=== PATIENT | female | born 1975 | race Caucasian/White ===

== ENCOUNTER 2019-01-18 08:43 | Day surgery (SDC) | payer MEDICAID ==
[2019-01-18] VITALS (11 sets, daily range): BP systolic 101–139; BP diastolic 60–85; PULSE 69–82; RESP 15–21; Ht 162.6 cm; Wt 68.5 kg
[~2019-01-18] VITALS: Ht 162.6 cm; Wt 68.5 kg
[~2019-01-18 08:43] MED LIST: ABCC1C PO; GLYB1.252 PO; PREN1TAB17 PO; ZOF8 PO
[2019-01-18] MEDS ORDERED: POLYMYXIN/BACITRACIN 1L IRRIG IRR ONE (10:30)
[2019-01-18] MEDS ORDERED: CEFAZOLIN 1 GM/50 ML (PMX) 50 ML IVPB ONE ×2 (10:30→12:58)
[2019-01-18] MEDS: SOD CHLORIDE 0.9% 1,000 ML IV SCH ×2 (11:18→13:00)
[2019-01-18] MEDS ORDERED: HEPARIN 1000 UNITS/ML 10 ML INJ ONE (12:35)
[2019-01-18] MEDS ORDERED: LIDOCAINE 1%/EPI (1:100,000) (MDV) 20 ML ONE ×2 (12:35→13:32)
[2019-01-18] MEDS ORDERED: MIDAZOLAM 1 MG/ML 2 ML INJ ONE (12:58)
[2019-01-18] MEDS ORDERED: FENTAnyl 50 MCG/ML VIAL ONE (12:59)
[2019-01-18] MEDS ORDERED: TRANEXAMIC ACID 1 GM/100 ML ONE (15:54)
[2019-01-18] MEDS ORDERED: HYDROCODONE/APAP (5/325) TAB PO ONE ×2 (16:00)
== END 2019-01-18 17:00 | disposition home or self-care (01) ==
LOC: RAD 08:43 → SDS 08:43 → RAD 17:00
PROVIDERS: ATTEND Internal Medicine Hematology & Oncology
DX: C50.912 Malignant neoplasm of unspecified site of left female breast (principal)
CPT/HCPCS: 36561; 76942; C1788; J0690; J1644; J2250; J3010

== ENCOUNTER 2019-03-22 09:42 | Emergency (ER) | payer MEDICAID ==
[~2019-03-22] VITALS: Ht 160 cm; Wt 66.1 kg
[2019-03-22 09:46] VITALS: Ht 160 cm; Wt 66.1 kg
[2019-03-22] MEDS ORDERED: morphine 4 MG/ML VIAL IV STA (11:40)
[2019-03-22] MEDS ORDERED: ONDANSETRON 4 MG INJ IV STA ×2 (11:40→14:09)
[2019-03-22] MEDS ORDERED: METO10TA3 PO (12:00)
[2019-03-22] MEDS ORDERED: ACET-141 PO (12:00)
[2019-03-22] MEDS ORDERED: IOHEXOL 300MG/ML 150 ML BTL ONE (13:12)
[2019-03-22] MEDS ORDERED: SOD CHLORIDE 0.9% 100 ML ONE (13:12)
[2019-03-22] MEDS ORDERED: SOD CHLORIDE 0.9% 1,000 ML IV STA (14:09)
[2019-03-22] MEDS ORDERED: KETOROLAC 30 MG INJ IV STA (14:09)
[2019-03-22] MEDS ORDERED: HYDROmorphONE 1 MG/ML SYG IV STA (14:09)
[2019-03-22] MEDS ORDERED: DOCU-144 PO (14:32)
[2019-03-22] MEDS ORDERED: HYDR-4011 PO (14:32)
[2019-03-22] MEDS ORDERED: HEPARIN (100 UNITS/ML) 5 ML SYG CATHETER ONE (15:30)
[2019-03-22 15:52] VITALS: BP 119/58; PULSE 68; RESP 20
--- NOTE | 2019-03-26 13:31 | ERD ---
ER Documentation Chief Complaint Chief Complaint generalized body pain x 3 days , on chemo for breast ca HPI This is a very pleasant 44-year-old female with a past medical history of left- sided breast carcinoma on chemotherapy. The patient presents to the emergency department complaining of flank pain for the past 3 days. She states the pain is on the left-hand side. The pain has been intermittent. Today it progressively worsened and started to move to the left lower quadrant. She denies any hematuria. She has no frequency urgency or dysuria. She said no fevers or shaking no chills. She had generalized myalgias she states the pain is causing exhaustion. She did not take analgesic medication prior to arrival. Has no shortness of breath. ROS All systems reviewed and are negative except as per history of present illness. Medications Home Meds Active Scripts Docusate Sodium* (Colace*) 100 Mg Capsule, 100 MG PO Q24H PRN for CONSTIPATION, #30 CAP Prov:ILDEFONSO CHAPMAN MD 03/22/19 Hydrocodone/Acetaminophen ([place] 5-325 Tablet) 1 Each Tablet, 1 EACH PO Q6, #20 TAB Prov:ILDEFONSO CHAPMAN MD 03/22/19 Reported Medications Acetaminophen* (Acetaminophen*) 500 MG Extra Strength Tablet, 500 MG PO BID PRN for PAIN AND OR ELEVATED TEMP, TAB 03/22/19 Metoclopramide Hcl* (Metoclopramide Hcl*) 10 Mg Tablet, 10 MG PO BID PRN for NAUSEA AND OR VOMITING, TAB 03/22/19 Allergies Allergies: Coded Allergies: Sulfa (Sulfonamide Antibiotics) (Verified Allergy, Unknown, 03/22/19) PMhx/Soc History of Surgery: Yes (C SECTION, RT OOPHERECTOMY) Anesthesia Reaction: No Hx Neurological Disorder: No Hx Respiratory Disorders: No Hx Cardiac Disorders: No Hx Psychiatric Problems: No Hx Miscellaneous Medical Probl: No Hx Alcohol Use: No Hx Substance Use: No Hx Tobacco Use: No Smoking Status: Never smoker Physical Exam Vitals Vital Signs Date Temp Pulse Resp B/P (MAP) Pulse Ox O2 O2 Flow FiO2 Time Delivery Rate 03/22/19 68 20 119/58 100 Room Air 15:52 (78) 03/22/19 69 19 125/77 100 Room Air 14:54 (93) 03/22/19 68 20 119/54 98 Room Air 12:30 (75) 03/22/19 97.8 98 18 157/98 99 09:46 (117) Physical Exam Constitutional:Well-developed. Well-nourished. HEENT:Normocephalic. Atraumatic.Pupils were equal round reactive to light. Moist mucous membranes.No tonsillar exudates. Neck: No nuchal rigidity. No lymphadenopathy. No posterior cervical spine tenderness or step-offs. Respiratory: Not using accessory muscles of respiration.Lungs were clear to auscultation bilaterally. No rhonchi. No rales. No wheezing. Cardiovascular: Regular rate regular rhythm.No murmurs. No rubs were appreciated.S1, S2 normal. Distal pulses are palpable 2+ bilaterally. GI: Left CVA tenderness. Tenderness in the left lower quadrant. No abdominal masses or bruits. Bowel sounds were normal. No peritoneal signs. Muscle skeletal: Full range of motion of both the upper and lower extremities bilaterally.Normal muscle tone.No assymetrical calf tenderness or swelling. Skin: No petechia, no purpura. No lesions on the palms or the soles of the feet. No maculopapular rash. NEURO: Patient was alert, awake, orientated x3.No facial droop. Gait observed and normal with no ataxia.Speech had regular rate and rhythm. No focal neurological deficits. Result Diagram: 03/22/19 1150 03/22/19 1150 Results 24 hrs Laboratory Tests Test 03/22/19 11:45 03/22/19 11:50 Urine Color COLORLESS Urine Clarity CLEAR Urine pH 8.0 Urine Specific [place] 1.002 Urine Ketones NEGATIVE mg/dL Urine Nitrite NEGATIVE mg/dL Urine Bilirubin NEGATIVE mg/dL Urine Urobilinogen NEGATIVE mg/dL Urine Leukocyte Esterase NEGATIVE Jean [place]/ul Urine Hemoglobin NEGATIVE mg/dL Urine Glucose NEGATIVE mg/dL Urine Total Protein NEGATIVE mg/dl White Blood Count 2.9 10^3/ul Red Blood Count 3.51 10^6/ul Hemoglobin 11.0 g/dl Hematocrit 32.8 % Mean Corpuscular Volume 93.4 fl Mean Corpuscular Hemoglobin 31.3 pg Mean Corpuscular Hemoglobin Concent 33.5 g/dl Red Cell Distribution Width 13.1 % Platelet Count 189 10^3/UL Mean Platelet Volume 9.5 fl Immature Granulocytes % 0.300 % Neutrophils % % Segmented Neutrophils % (Manual) 15 % Band Neutrophils % (Manual) 9 % Lymphocytes % % Lymphocytes % (Manual) 63 % Reactive Lymphocytes % (Manual) 11 % Monocytes % % Monocytes % (Manual) 2 % Eosinophils % % Basophils % % Nucleated Red Blood Cells % 0.0 /100WBC Immature Granulocytes # 0.010 10^3/ul Neutrophils # 10^3/ul Neutrophils # (Manual) 0.4 10^3/ul Band Neutrophils # 0.2 10^3/ul Lymphocytes (Manual) 1.8 10^3/ul Lymphocytes # 10^3/ul Reactive Lymphocytes # 0.3 10^3/ul Monocytes # 10^3/ul Monocytes # (Manual) 0.0 10^3/ul Eosinophils # 10^3/ul Basophils # 10^3/ul Nucleated Red Blood Cells # 10^3/ul Platelet Estimate NORMAL Poikilocytosis 1+ Anisocytosis 1+ Prothrombin Time 12.0 Sec Prothrombin Time Ratio 0.9 INR International Normalized Ratio 0.88 Activated Partial Thromboplast Time 30.0 Sec Sodium Level 141 mmol/L Potassium Level 3.8 mmol/L Chloride Level 106 mmol/L Carbon Dioxide Level 25 mmol/L Anion Gap 10 Blood Urea Nitrogen 8 mg/dl Creatinine 0.43 mg/dl Est Glomerular Filtrat Rate mL/min > 60 mL/min Glucose Level 100 mg/dl Calcium Level 9.5 mg/dl Total Bilirubin 0.5 mg/dl Direct Bilirubin 0.00 mg/dl Indirect Bilirubin 0.5 mg/dl Aspartate Amino Transf (AST/SGOT) 25 IU/L Alanine Aminotransferase (ALT/SGPT) 49 IU/L Alkaline Phosphatase 73 IU/L Troponin I < 0.012 ng/ml Total Protein 7.1 g/dl Albumin 4.3 g/dl Globulin 2.80 g/dl Albumin/Globulin Ratio 1.53 Amylase Level 107 U/L Lipase 144 U/L Current Medications Medications Dose Sig/Paula Start Time Status Last (Trade) Ordered Route PRN Stop Time Admin Dose Reason Admin Morphine 4 mg ONCE STAT 03/22/19 DC 03/22/19 Sulfate IV 11:40 12:09 (morphine) 03/22/19 11:42 Ondansetron 4 mg ONCE STAT 03/22/19 DC 03/22/19 HCl (Zofran IV 11:40 12:09 Inj) 03/22/19 11:42 IV Flush 10 ml STK-MED 03/22/19 DC (NS 10 ml) ONCE .ROUTE 13:12 03/22/19 13:13 Sodium 100 ml @ ud STK-MED 03/22/19 DC Chloride ONCE .ROUTE 13:12 03/22/19 13:13 Iohexol 150 ml STK-MED 03/22/19 DC (Omnipaque ONCE .ROUTE 13:12 300mg/ ml) 03/22/19 13:13 Ketorolac 30 mg ONCE STAT 03/22/19 DC Tromethamine IV 14:09 (Toradol) 03/22/19 14:13 Sodium 1,000 ml @ Q1H STAT 03/22/19 DC Chloride 1,000 mls/hr IV 14:09 03/22/19 15:08 1 mg ONCE STAT 03/22/19 DC Hydromorphone IV 14:09 HCl 03/22/19 14:13 (Dilaudid) Ondansetron 4 mg ONCE STAT 03/22/19 DC HCl (Zofran IV 14:09 Inj) 03/22/19 14:13 Heparin 500 unit ONCE ONCE 03/22/19 DC 03/22/19 Sodium CATHETER 15:30 15:49 (Porcine) 03/22/19 15:31 (Heparin Flush (100 Units/ml)) Procedures/MDM This patient presented to the emergency department with abdominal pain and was seen and evaluated by myself. My differential diagnosis included but was not limited to abdominal aortic aneurysm, appendicitis, pancreatitis, perforated peptic ulcer, perforated viscus, Boerhaaves syndrome or visceral pain such as diverticulitis, DKA, esophagitis, hepatitis or bowel obstruction. The patient was placed on a classroom monitor, continuous pulse oximetry, and IV access was established by nursing staff. The patient was given intravenous morphine and Zofran for analgesia control. I obtained a 12-lead EKG tracing developed atypical myocardial ischemia. 12 Lead EKG tracing ordered and reviewed by myself showed: Normal sinus rhythm of 79 bpm and no arrhythmia. AK interval normal. QRS duration normal. No ST segment elevation No ST segment depression. No changes consistent with acute ischemia. I obtained a chest radiograph and there is no evidence of pneumonia. CT scan of the abdomen was also ordered by myself and reviewed by the radiologist and indicate the followin. No acute intra-abdominal abnormality identified. 2. 5 mm nonobstructing calculus within the lower pole of the left kidney. 3. Status post right oophorectomy. 4. Small fat-containing umbilical hernia. Observation Note: Time: 4 hours Family Hx: No Hypertension Evaluation: Multiple exams showed improving symptoms and no evidence of worsening of her symptoms. I did feel her abdominal pain was a result of nephrolithiasis. She felt comfortable being discharged home. The patient was discharged home in fair condition. They were instructed to return to the emergency department at any time if there was any worsening of their condition. The patient stated they would follow up with their PCP in the next 24-48 hours to initiate a suitable medication regimen under the care of their PCP as well as to allow their PCP to monitor any drug reactions. The patient was discharged home with prescriptions after they gave informed consent to the new medication. They were also fully informed by myself on the adverse effects and adverse drug interactions in order to provide adequate safeguards to prevent possible adverse reactions to medications. Departure Diagnosis: Primary Impression: Kidney stones Condition: Fair Patient Instructions: Myalgias, Kidney Stone W/ Colic ILDEFONSO CHAPMAN MD Mar 26, 2019 13:31
== END 2019-03-22 15:55 | disposition home or self-care (01) ==
LOC: E/R 09:42
DX: N20.0 Calculus of kidney (principal); C50.912 Malignant neoplasm of unspecified site of left female breast
CPT/HCPCS: 71045; 74177; 80053; 81003; 82150; 83690; 84484; 85025; 85610; 85730; 87040; 87086; 93005; 96374; 96375; J1642; J2270; J2405; J7030; Q9967; Z7502; Z7610

== ENCOUNTER 2019-04-10 21:16 | Emergency (ER) | payer MEDICAID ==
[~2019-04-10] VITALS: Ht 152.4 cm; Wt 65.9 kg
[~2019-04-10 21:16] MED LIST changes: -ABCC1C PO; +ACET-141 PO; +ALBU8.5H8 INH; +DOCU-144 PO; -GLYB1.252 PO; +HYDR-4011 PO; +METO10TA3 PO; -PREN1TAB17 PO; -ZOF8 PO
[2019-04-10 21:18] VITALS: Ht 152.4 cm; Wt 65.9 kg
[2019-04-10] MEDS ORDERED: SOD CHLORIDE 0.9% 500 ML IV STA (22:01)
--- NOTE | 2019-04-11 01:05 | ERD ---
ER Documentation Chief Complaint Chief Complaint BREST CA-ON CHEMO; GEN BODY PAIN AND FEEL SOB HPI This is a 44-year-old female undergoing chemotherapy for breast cancer, last treatment was last Thursday. She is here complaining of general body pain and feels slight shortness of breath off-and-on for the past couple of days. No fe amado no palpitations or dyspnea on exertion. The breathing episodes are sporadic and brief. She also feels general malaise and body pain no cough no dysuria no GI symptoms ROS All systems reviewed and are negative except as per history of present illness. Medications Home Meds Active Scripts Docusate Sodium* (Colace*) 100 Mg Capsule, 100 MG PO Q24H PRN for CONSTIPATION, #30 CAP Prov:ILDEFONSO CHAPMAN MD 03/22/19 Hydrocodone/Acetaminophen ([place] 5-325 Tablet) 1 Each Tablet, 1 EACH PO Q6, #20 TAB Prov:ILDEFONSO CHAPMAN MD 03/22/19 Reported Medications Acetaminophen* (Acetaminophen*) 500 MG Extra Strength Tablet, 500 MG PO BID PRN for PAIN AND OR ELEVATED TEMP, TAB 03/22/19 Metoclopramide Hcl* (Metoclopramide Hcl*) 10 Mg Tablet, 10 MG PO BID PRN for NAUSEA AND OR VOMITING, TAB 03/22/19 Allergies Allergies: Coded Allergies: Sulfa (Sulfonamide Antibiotics) (Verified Allergy, Unknown, 03/22/19) PMhx/Soc History of Surgery: Yes (C SECTION, RT OOPHERECTOMY) Anesthesia Reaction: No Hx Neurological Disorder: No Hx Respiratory Disorders: No Hx Cardiac Disorders: No Hx Psychiatric Problems: No Hx Miscellaneous Medical Probl: Yes (RIGHT BREAST CANCER) Hx Alcohol Use: No Hx Substance Use: No Hx Tobacco Use: No Smoking Status: Never smoker FmHx Family History: No coronary disease Physical Exam Vitals Vital Signs Date Temp Pulse Resp B/P (MAP) Pulse Ox O2 O2 Flow FiO2 Time Delivery Rate 04/10/19 98.5 100 25 126/90 100 Room Air 21:45 (102) 04/10/19 96.7 111 20 174/100 96 21:18 (124) Physical Exam C const: Well-developed, well-nourished Head: Atraumatic, normocephalic Eyes: Normal Conjunctiva, PERRLA, EOMI, normal sclera, no nystagmus ENT: Normal External Ears, Nose and Mouth, moist mucus membranes. Neck: Full range of motion. No meningismus, no lymphadenopathy. Resp: Clear to auscultation bilaterally, no wheezing, rhonchi, rales Cardio: Regular rate and rhythm, no murmurs, S1 S2 present Abd: Soft, non tender x 4, non distended. Normal bowel sounds, no guarding or rebound, no pulsitile abdominal masses or bruits Skin: No petechiae or rashes, no ecchymosis , no maculopapular rash Back: No midline or flank tenderness Ext: No cyanosis, or edema, FROM x 4, normal inspection, neurovascularly intact x 4 Neur: Awake and alert, STR 5/5 x 4, sensation intact x 4, no focal findings, cerebellum intact Psych: Normal Mood and Affect Result Diagram: 04/10/19223804/10/192238 Results 24 hrs Laboratory Tests Test 04/10/19 22:39 White Blood Count 3.6 10^3/ul Red Blood Count 3.42 10^6/ul Hemoglobin 10.8 g/dl Hematocrit 31.7 % Mean Corpuscular Volume 92.7 fl Mean Corpuscular Hemoglobin 31.6 pg Mean Corpuscular Hemoglobin Concent 34.1 g/dl Red Cell Distribution Width 12.9 % Platelet Count 153 10^3/UL Mean Platelet Volume 9.6 fl Immature Granulocytes % 1.100 % Neutrophils % % Lymphocytes % % Monocytes % % Eosinophils % % Basophils % % Nucleated Red Blood Cells % 0.0 /100WBC Immature Granulocytes # 0.040 10^3/ul Neutrophils # 10^3/ul Lymphocytes # 10^3/ul Monocytes # 10^3/ul Eosinophils # 10^3/ul Basophils # 10^3/ul Nucleated Red Blood Cells # 10^3/ul Prothrombin Time 12.4 Sec Prothrombin Time Ratio 1.0 INR International Normalized Ratio 0.91 Activated Partial Thromboplast Time 28.6 Sec Sodium Level 135 mmol/L Potassium Level 3.8 mmol/L Chloride Level 101 mmol/L Carbon Dioxide Level 28 mmol/L Anion Gap 6 Blood Urea Nitrogen 16 mg/dl Creatinine 0.66 mg/dl Est Glomerular Filtrat Rate mL/min > 60 mL/min Glucose Level 117 mg/dl Calcium Level 9.5 mg/dl Total Bilirubin 0.6 mg/dl Direct Bilirubin 0.00 mg/dl Indirect Bilirubin 0.6 mg/dl Aspartate Amino Transf (AST/SGOT) 20 IU/L Alanine Aminotransferase (ALT/SGPT) 28 IU/L Alkaline Phosphatase 55 IU/L Troponin I < 0.012 ng/ml Total Protein 6.6 g/dl Albumin 4.0 g/dl Globulin 2.60 g/dl Albumin/Globulin Ratio 1.53 Serum HCG, Qualitative NEGATIVE Current Medications Medications Dose Sig/Paula Start Time Status Last (Trade) Ordered Route PRN Stop Time Admin Dose Reason Admin Sodium 500 ml @ Q1H STAT 04/10/19 DC 04/10/19 Chloride 500 mls/hr IV 22:01 04/10/19 23:00 23:00 Procedures/[place] [id number] Radiology Main Line: [phone] DIAGNOSTIC IMAGING REPORT Patient: AMY RAY : 1975 Age: 44 Sex: F MR #: [id number] DOS: 04/10/19 2201 Ordering MD: INDU UNDERWOOD DO Location: E/R Room/Bed: PROCEDURE: CT Pulmonary Angiogram. CLINICAL INDICATION: Chest pain and shortness of breath. TECHNIQUE: CT pulmonary angiogram and a CT scan of the chest with contrast was performed. The patient was scanned following the uncomplicated intravenous administration of 100 ml of Isovue 370intravenous contrast. 2-D coronal reformatted images were obtained from the axial source images. In addition, 3-D post processing was performed. Total exam DLP is 576 mGy-cm. CTDIvol is 28 mGy. One or more of the following dose reduction techniques were used: Automated exposure control, adjustment of the mA and/or kV according to patient size, use of iterative reconstruction technique. DICOM images are available. COMPARISON: None available. FINDINGS: The pulmonary arteries are normal with no filling defect or lack of enhancement to suggest pulmonary artery embolism. The lungs are clear. There is no pulmonary airspace or interstitial disease. There is no pulmonary nodule or mass lesion. There is no pneumothorax. There is no mediastinal or hilar lymphadenopathy or mass. There is no pleural effusion. There is no pericardial effusion. The thoracic aorta is normal with no aneurysm or dissection. There is a right internal jugular vein implanted port central venous catheter with the tip in the right atrium. Images through the upper abdomen demonstrate normal visualized portions of the liver, spleen, and adrenals. The osseous structures are normal with no fracture or lytic lesion. IMPRESSION: 1. Normal CT pulmonary angiogram with no evidence of pulmonary artery embolism. 2. Right IJ catheter in satisfactory position. 3. Otherwise unremarkable CT scan of the chest. RPTAT: QQ .Rolly Graf MD, MD Date Time Electronically viewed and signed by .Rolly Graf MD, MD on 04/11/2019 00:20 .R/ CC: INDU UNDERWOOD DO [id number] No evidence of PE on CT scan. Blood work looks unremarkable. I feel his symptoms are most likely due to side effects of chemotherapy. She is only had 3-4 treatments so far. There is no pneumonia no PE or other lung pathology. Letter go home with close observation at home She does have some mild anemia but does not require blood transfusion She is feeling better EKG: Rate/Rhythm: Normal Sinus Rhythm,NL intervals QRS, ST, QT: NORMAL ND, QRS, QT] Impression: NORMAL EKG Departure Diagnosis: Primary Impression: Shortness of breath Additional Impression: Malaise and fatigue Condition: Stable INDU UNDERWOOD DO Apr 11, 2019 00:56
[2019-04-11 01:25] VITALS: BP 112/73; PULSE 84; RESP 24
[2019-04-11] MEDS ORDERED: SOD CHLORIDE 0.9% 100 ML ONE (01:29)
[2019-04-11] MEDS ORDERED: IOHEXOL 300MG/ML 150 ML BTL ONE (01:29)
== END 2019-04-11 01:25 | disposition home or self-care (01) ==
LOC: E/R 21:16
DX: R06.02 Shortness of breath (principal); C50.911 Malignant neoplasm of unspecified site of right female breast; R53.83 Other fatigue; R53.81 Other malaise
CPT/HCPCS: 36415; 71275; 80053; 84484; 84703; 85025; 85610; 85730; 93005; J7040; Q9967; Z7502; Z7610

== ENCOUNTER 2019-05-21 19:16 | Emergency (ER) | payer MEDICAID ==
[~2019-05-21] VITALS: Ht 154.9 cm; Wt 67.0 kg
[~2019-05-21 19:16] MED LIST changes: +ACET1TAB40 PO; +ACET325T33 PO; +AMLO2.5T78 PO; +AMOX1TAB10 PO; +CEPH-443 PO; +CEPH500C PO; +CIPR-193 PO; +CIPR500T4 PO; +DOXY100C PO; +LACT1CAP28 PO; +ONDA4TAB8 PO; +TRAM50TA2 PO
[2019-05-21 19:17] VITALS: Ht 154.9 cm; Wt 67.0 kg
[2019-05-21] MEDS ORDERED: ONDANSETRON 4 MG INJ IV STA (19:51)
[2019-05-21] MEDS ORDERED: SOD CHLORIDE 0.9% 500 ML IV STA (19:51)
[2019-05-21] MEDS ORDERED: morphine 4 MG/ML VIAL IV STA (19:51)
[2019-05-21 21:55] VITALS: BP 118/71; PULSE 67; RESP 16
== END 2019-05-21 21:57 | disposition home or self-care (01) ==
LOC: E/R 19:16
DX: D05.91 Unspecified type of carcinoma in situ of right breast (principal)
CPT/HCPCS: 36415; 80053; 81001; 83690; 85025; 96374; 96375; J2270; J2405; J7040; Z7502

== ENCOUNTER 2019-06-28 22:58 | Inpatient (IN) | payer MEDICAID ==
[~2019-06-28] VITALS: Ht 152.4 cm; Wt 67.2 kg
[~2019-06-28 22:58] MED LIST changes: -ACET-141 PO; -ALBU8.5H8 INH; -AMOX1TAB10 PO; -CEPH-443 PO; -CIPR-193 PO; -DOCU-144 PO; -HYDR-4011 PO; -LACT1CAP28 PO; -METO10TA3 PO
[2019-06-28] MEDS ORDERED: SODIUM CHLORIDE 0.9% 1L BAG IV* STA (23:15)
[2019-06-28] MEDS ORDERED: CEFEPIME 2GM/50 ML (PMX) 50 ML IVPB STA (23:16)
[2019-06-28] MEDS ORDERED: VANCOMYCIN 1 GM (PMX) 250 ML IVPB ONE (23:30)
[2019-06-28] MEDS ORDERED: ONDANSETRON 4 MG INJ IV STA (23:31)
[2019-06-28] MEDS ORDERED: HYDROmorphONE 2 MG/ML SYG IV STA (23:31)
[2019-06-28] MEDS ORDERED: DIPHENHYDRAMINE 50 MG INJ ONE (23:45)
[2019-06-29] MEDS ORDERED: DIPHENHYDRAMINE 50 MG INJ IV PRN
[2019-06-29] MEDS ORDERED: ONDANSETRON 4 MG INJ IV PRN (00:30)
[2019-06-29] MEDS ORDERED: ACETAMINOPHEN 325 MG TAB PO PRN (00:30)
[2019-06-29] MEDS ORDERED: KETOROLAC 15 MG INJ INJ STA (00:46)
[2019-06-29] MEDS ORDERED: NACL 0.9% 3 ML SYG IV SCH (04:00)
[2019-06-29] MEDS: CEFEPIME 1GM/50 ML (PMX) 50 ML IVPB SCH ×2 (04:49→15:28)
[2019-06-29 05:30] VITALS: BP 115/60; PULSE 103; RESP 18
[2019-06-29] MEDS: SOD CHLORIDE 0.9% 1,000 ML IV SCH ×3 (05:42→17:22)
[2019-06-29 05:51] VITALS: Ht 152.4 cm; Wt 67.2 kg
[2019-06-29 07:30] VITALS: BP 134/89; PULSE 110; RESP 19
[2019-06-29] MEDS: IBUPROFEN 600 MG TAB PO PRN (07:39)
[2019-06-29] MEDS ORDERED: HYDROmorphONE 1 MG/ML SYG IV PRN (08:30)
[2019-06-29] MEDS ORDERED: KETOROLAC 30 MG INJ IV STA (08:51)
[2019-06-29] MEDS ORDERED: VANCOMYCIN IV PER PHARMACY XX SCH (09:00)
[2019-06-29] MEDS ORDERED: SOD CHLORIDE 0.9% 1,000 ML IV ONE (09:00)
[2019-06-29] MEDS: VANCOMYCIN 1 GM 250 ML IVPB SCH ×2 (10:11→21:25)
[2019-06-29] MEDS: ONDANSETRON 4 MG INJ IV PRN (11:42)
[2019-06-29] MEDS: HYDROmorphONE 0.5 MG/0.5 ML SYG IV PRN ×3 (13:00→21:25)
[2019-06-29 14:22] VITALS: BP 110/63; PULSE 82; RESP 18
[2019-06-29] MEDS: METOCLOPRAMIDE 10 MG INJ IV PRN (14:39)
[2019-06-29 19:21] VITALS: BP 121/68; PULSE 84; RESP 18
[2019-06-30 01:30] VITALS: BP 126/70; PULSE 103; RESP 18
[2019-06-30] MEDS: HYDROmorphONE 0.5 MG/0.5 ML SYG IV PRN ×6 (01:40→22:21)
[2019-06-30] MEDS: SOD CHLORIDE 0.9% 1,000 ML IV SCH ×4 (03:49→16:22)
[2019-06-30] MEDS: CEFEPIME 1GM/50 ML (PMX) 50 ML IVPB SCH ×2 (03:49→16:21)
[2019-06-30 07:32] VITALS: BP 107/64; PULSE 75; RESP 17
[2019-06-30] MEDS: VANCOMYCIN 1 GM 250 ML IVPB SCH (10:20)
[2019-06-30] MEDS ORDERED: POTASSIUM CHLORIDE (SR) 20 MEQ TAB PO STA (12:13)
[2019-06-30 14:58] VITALS: BP 143/83; PULSE 99; RESP 16
[2019-06-30] MEDS ORDERED: DIPHENHYDRAMINE 50 MG INJ IV PRN (17:00)
[2019-06-30 19:44] VITALS: BP 130/76; PULSE 106; RESP 17
[2019-06-30] MEDS ORDERED: oxyCODONE (CR) 10 MG TAB [oxyCONTIN] PO SCH (21:00)
[2019-06-30] MEDS: ONDANSETRON 4 MG INJ IV PRN (21:38)
[2019-06-30] MEDS: VANCOMYCIN 1.25 GM/NS 250 ML 250 ML IVPB SCH (22:22)
[2019-07-01 01:40] VITALS: BP 110/72; PULSE 103; RESP 18
[2019-07-01] MEDS: SOD CHLORIDE 0.9% 1,000 ML IV SCH ×2 (03:50→05:03)
[2019-07-01] MEDS: HYDROmorphONE 0.5 MG/0.5 ML SYG IV PRN ×5 (04:22→21:34)
[2019-07-01] MEDS: CEFEPIME 1GM/50 ML (PMX) 50 ML IVPB SCH (04:22)
[2019-07-01] MEDS ORDERED: ACETAMINOPHEN 1000MG/100ML IV 100 ML IVPB ONE (05:30)
[2019-07-01 07:49] VITALS: BP 134/80; PULSE 104; RESP 17
[2019-07-01] MEDS ORDERED: DEXTROSE 5%-0.45% NACL 1,000 ML IV SCH (09:30)
[2019-07-01] MEDS: VANCOMYCIN 1.25 GM/NS 250 ML 250 ML IVPB SCH ×2 (10:08→22:22)
[2019-07-01] MEDS: DOCUSATE SODIUM 100 MG CAP PO SCH ×2 (11:44→21:33)
[2019-07-01 12:30] VITALS: BP 109/70; PULSE 92; RESP 17
[2019-07-01] MEDS: PIPER-TAZO 3.375 GM IV (PMX) 100 ML IVPB SCH ×2 (14:18→18:55)
[2019-07-01 16:00] VITALS: BP 130/79; PULSE 90; RESP 17
[2019-07-01 19:17] VITALS: BP 114/67; PULSE 88; RESP 18
[2019-07-02] MEDS: HYDROmorphONE 0.5 MG/0.5 ML SYG IV PRN ×6 (01:35→22:49)
[2019-07-02] MEDS: PIPER-TAZO 3.375 GM IV (PMX) 100 ML IVPB SCH ×5 (01:35→18:19)
[2019-07-02 02:42] VITALS: BP 116/74; PULSE 89; RESP 16
[2019-07-02 07:28] VITALS: BP 124/67; PULSE 74; RESP 20
[2019-07-02] MEDS: DOCUSATE SODIUM 100 MG CAP PO SCH ×2 (08:05→21:00)
[2019-07-02] MEDS: VANCOMYCIN 1.25 GM/NS 250 ML 250 ML IVPB SCH ×2 (10:36→21:45)
[2019-07-02] MEDS ORDERED: SENNA TAB PO PRN (12:30)
[2019-07-02] MEDS ORDERED: DOCUSATE SODIUM 100 MG CAP PO SCH (12:30)
[2019-07-02 20:00] VITALS: BP 132/79; RESP 18
[2019-07-03] MEDS: PIPER-TAZO 3.375 GM IV (PMX) 100 ML IVPB SCH ×4 (00:49→18:10)
[2019-07-03 02:00] VITALS: BP 119/63; PULSE 86; RESP 18
[2019-07-03] MEDS: HYDROmorphONE 0.5 MG/0.5 ML SYG IV PRN ×4 (03:26→19:48)
[2019-07-03 07:37] VITALS: BP 123/80; PULSE 76; RESP 20
[2019-07-03] MEDS: DOCUSATE SODIUM 100 MG CAP PO SCH ×2 (08:53→21:06)
[2019-07-03] MEDS: VANCOMYCIN 1.25 GM/NS 250 ML 250 ML IVPB SCH ×2 (10:58→22:23)
[2019-07-03 13:25] VITALS: BP 139/87; PULSE 87; RESP 20
[2019-07-03 19:25] VITALS: BP 129/74; PULSE 78; RESP 18
[2019-07-03] MEDS: ONDANSETRON 4 MG INJ IV PRN (21:06)
[2019-07-04] MEDS: PIPER-TAZO 3.375 GM IV (PMX) 100 ML IVPB SCH ×4 (00:07→17:29)
[2019-07-04 02:13] VITALS: BP 138/75; PULSE 75; RESP 18
[2019-07-04] MEDS: HYDROmorphONE 0.5 MG/0.5 ML SYG IV PRN ×4 (04:33→22:12)
[2019-07-04 07:25] VITALS: BP 133/82; PULSE 68; RESP 20
[2019-07-04] MEDS ORDERED: POTASSIUM CHLORIDE (SR) 20 MEQ TAB PO STA (08:24)
[2019-07-04] MEDS: DOCUSATE SODIUM 100 MG CAP PO SCH ×3 (09:00→21:00)
[2019-07-04] MEDS: VANCOMYCIN 1.25 GM/NS 250 ML 250 ML IVPB SCH ×2 (09:27→22:05)
[2019-07-04] MEDS: ONDANSETRON 4 MG INJ IV PRN ×2 (09:36→22:12)
[2019-07-04] MEDS ORDERED: LIDOCAINE 1% (MDV) 20 ML INJ ONE (10:55)
[2019-07-04 13:19] VITALS: BP 154/87; PULSE 83; RESP 18
[2019-07-04 19:25] VITALS: BP 150/83; PULSE 77; RESP 18
[2019-07-05] MEDS: PIPER-TAZO 3.375 GM IV (PMX) 100 ML IVPB SCH ×4 (00:07→17:44)
[2019-07-05] MEDS: HYDROmorphONE 0.5 MG/0.5 ML SYG IV PRN (02:29)
[2019-07-05 02:43] VITALS: BP 130/73; PULSE 67; RESP 17
[2019-07-05] MEDS: ONDANSETRON 4 MG INJ IV PRN ×2 (05:08→20:39)
[2019-07-05] MEDS: METOCLOPRAMIDE 10 MG INJ IV PRN ×2 (07:48→17:56)
[2019-07-05 08:06] VITALS: BP 162/87; PULSE 80; RESP 18
[2019-07-05] MEDS: DOCUSATE SODIUM 100 MG CAP PO SCH ×2 (08:43→20:39)
[2019-07-05] MEDS ORDERED: POTASSIUM CHLORIDE (SR) 20 MEQ TAB PO STA (08:46)
[2019-07-05] MEDS: VANCOMYCIN 1.25 GM/NS 250 ML 250 ML IVPB SCH ×2 (10:14→22:25)
[2019-07-05] MEDS ORDERED: POTASSIUM CHLORIDE (SR) 20 MEQ TAB PO SCH (13:00)
[2019-07-05] MEDS: IBUPROFEN 600 MG TAB PO PRN (13:15)
[2019-07-05 13:49] VITALS: BP 168/91; PULSE 72; RESP 18
[2019-07-05] MEDS ORDERED: traMADol 50 MG TAB PO PRN (15:00)
[2019-07-05] MEDS ORDERED: HYDROmorphONE 0.5 MG/0.5 ML SYG IV PRN (17:00)
[2019-07-05] MEDS ORDERED: KETOROLAC 15 MG INJ IV PRN (19:00)
[2019-07-05 19:18] VITALS: BP 152/80; PULSE 62; RESP 17
[2019-07-06] MEDS: PIPER-TAZO 3.375 GM IV (PMX) 100 ML IVPB SCH ×2 (00:33→05:57)
[2019-07-06] MEDS: METOCLOPRAMIDE 10 MG INJ IV PRN (01:15)
[2019-07-06 02:06] VITALS: BP 140/86; PULSE 78; RESP 18
[2019-07-06] MEDS: ONDANSETRON 4 MG INJ IV PRN (06:33)
[2019-07-06 08:13] VITALS: BP 161/91; PULSE 63; RESP 18
[2019-07-06] MEDS: DOCUSATE SODIUM 100 MG CAP PO SCH (08:51)
[2019-07-06] MEDS: VANCOMYCIN 1.25 GM/NS 250 ML 250 ML IVPB SCH (09:01)
[2019-07-06] MEDS ORDERED: SOD CHLORIDE 0.9% 500 ML IV ONE (13:00)
[2019-07-06 13:09] VITALS: BP 150/84; PULSE 65; RESP 18
[2019-07-06] MEDS ORDERED: ALTEPLASE (CATHFLO) 2 MG INJ CATHETER PRN (13:30)
[2019-07-06] MEDS ORDERED: CEFTRIAXONE 2 GM/50 ML (PMX) 50 ML IVPB SCH (14:00)
== END 2019-07-06 15:25 | disposition home or self-care (01) | DRG 872 ==
LOC: E/R 22:58 → 2NE 06-29 00:21
PROVIDERS: ADMIT Internal Medicine; ATTEND Internal Medicine
PROC: 0H9U3ZZ Drainage of Left Breast, Percutaneous Approach (ICD-10-PCS; principal; 2019-07-04)
DX: A41.9 Sepsis, unspecified organism (principal); N17.9 Acute kidney failure, unspecified; N61.1 Abscess of the breast and nipple; C50.912 Malignant neoplasm of unspecified site of left female breast; Z90.12 Acquired absence of left breast and nipple; F41.9 Anxiety disorder, unspecified; R31.9 Hematuria, unspecified; D64.9 Anemia, unspecified
CPT/HCPCS: 36415; 71045; 76642; 76775; 76856; 76942; 80048; 80053; 80069; 80202; 81001; 81003; 82270; 83605; 83735; 84100; 84484; 85025; 85610; 85730; 87070; 87086; 93005; 96374; 96375; J0131; J0692; J0696; J1170; J1200; J1642; J1885; J2405; J2543; J2765; J3370; J7030; J7040; J7042

== ENCOUNTER 2019-07-09 19:39 | Inpatient (IN) | payer MEDICAID ==
[2019-07-08 23:15] VITALS: BP 156/81; PULSE 92; RESP 20
[~2019-07-09] VITALS: Ht 154.9 cm; Wt 65.9 kg
[~2019-07-09 19:39] MED LIST changes: -ACET1TAB40 PO
[2019-07-09] MEDS ORDERED: ONDANSETRON 4 MG INJ IV STA (20:39)
[2019-07-09] MEDS ORDERED: HYDROmorphONE 1 MG/ML SYG IV STA (20:39)
[2019-07-09] MEDS ORDERED: SOD CHLORIDE 0.9% 500 ML IV STA (20:39)
[2019-07-09] MEDS ORDERED: SOD CHLORIDE 0.9% 1,000 ML IV STA (21:52)
[2019-07-09] MEDS ORDERED: ACETAMINOPHEN 325 MG TAB PO PRN (22:30)
[2019-07-09] MEDS ORDERED: NACL 0.9% 3 ML SYG IV SCH (22:30)
[2019-07-09] MEDS ORDERED: ONDANSETRON 4 MG INJ IV PRN (22:30)
[2019-07-09] MEDS ORDERED: morphine 2 MG INJ IV PRN (22:30)
[2019-07-09] MEDS ORDERED: DOCUSATE SODIUM 100 MG CAP PO PRN (22:30)
[2019-07-09] MEDS ORDERED: BISACODYL (EC) 5 MG TAB PO PRN (22:30)
[2019-07-10] MEDS: SOD CHLORIDE 0.9% 1,000 ML IV SCH ×3 (00:02→18:34)
[2019-07-10 00:19] VITALS: Ht 154.9 cm; Wt 65.9 kg
[2019-07-10] MEDS: CLINDAMYCIN 150 MG CAP PO SCH ×5 (01:19→23:57)
[2019-07-10] MEDS ORDERED: ZOLPIDEM 5 MG TAB PO ONE (01:30)
[2019-07-10 02:23] VITALS: BP 168/86; PULSE 89; RESP 18
[2019-07-10] MEDS ORDERED: HYDROmorphONE 0.5 MG/0.5 ML SYG IV PRN (03:00)
[2019-07-10] MEDS: HYDROmorphONE 1 MG/ML SYG IV PRN ×2 (03:05→09:06)
[2019-07-10] MEDS ORDERED: traMADol 50 MG TAB PO PRN (05:30)
[2019-07-10 06:58] VITALS: BP 148/70; PULSE 90; RESP 20
[2019-07-10 07:49] VITALS: BP 152/85; PULSE 90; RESP 20
[2019-07-10] MEDS: ONDANSETRON 4 MG INJ IV PRN (09:10)
[2019-07-10] MEDS: ACETAMINOPHEN 1000MG/100ML IV 100 ML IVPB SCH ×2 (12:22→18:34)
[2019-07-10 16:23] VITALS: BP 165/95; PULSE 81; RESP 18
[2019-07-10] MEDS: PANTOPRAZOLE (EC) 40 MG TAB PO SCH (16:55)
[2019-07-10 19:28] VITALS: BP 151/80; PULSE 93; RESP 18
[2019-07-11] MEDS: ACETAMINOPHEN 1000MG/100ML IV 100 ML IVPB SCH ×2 (00:02→05:38)
[2019-07-11] MEDS: ONDANSETRON 4 MG INJ IV PRN ×3 (00:10→09:26)
[2019-07-11 01:58] VITALS: BP 149/89; PULSE 70; RESP 18
[2019-07-11] MEDS: SOD CHLORIDE 0.9% 1,000 ML IV SCH ×2 (05:38→18:00)
[2019-07-11] MEDS: CLINDAMYCIN 150 MG CAP PO SCH ×3 (05:41→18:03)
[2019-07-11] MEDS: PANTOPRAZOLE (EC) 40 MG TAB PO SCH (05:41)
[2019-07-11 08:07] VITALS: BP 153/82; PULSE 81; RESP 20
[2019-07-11 09:34] VITALS: BP 173/89; PULSE 68; RESP 16
[2019-07-11] MEDS ORDERED: METOCLOPRAMIDE 10 MG INJ IV ONE (10:00)
[2019-07-11] MEDS ORDERED: hydrALAzine 20 MG INJ IV PRN (10:00)
[2019-07-11] MEDS ORDERED: AMLODIPINE 2.5 MG TAB PO SCH (11:00)
[2019-07-11 11:25] VITALS: BP 163/87
[2019-07-11 15:50] VITALS: BP 193/95; PULSE 77
== END 2019-07-11 18:23 | disposition home or self-care (01) | DRG 600 ==
LOC: E/R 19:39 → MS1 21:58
PROVIDERS: ADMIT Family Medicine; ATTEND Family Medicine
DX: N61.1 Abscess of the breast and nipple (principal); N17.0 Acute kidney failure with tubular necrosis; N18.9 Chronic kidney disease, unspecified; N20.0 Calculus of kidney; D63.8 Anemia in other chronic diseases classified elsewhere; Z85.3 Personal history of malignant neoplasm of breast; Z90.12 Acquired absence of left breast and nipple; Z92.21 Personal history of antineoplastic chemotherapy; Z88.2 Allergy status to sulfonamides
CPT/HCPCS: 36415; 74176; 76775; 80048; 80053; 81001; 81003; 82550; 82570; 83690; 83735; 84300; 84560; 84703; 85014; 85018; 85025; 87081; 87086; 89190; 96374; 96375; J0131; J0360; J1170; J2270; J2405; J2765; J7030; J7040